=== PATIENT | male | born 1955 ===

== ENCOUNTER → 2016-07-04 | Outpatient (REF) | payer BC, MEDICARE | LOC: LAB 11:27 | PROVIDERS: ATTEND Family Medicine | DX: E11.9 Type 2 diabetes mellitus without complications (principal) | CPT/HCPCS: 83036 ==

== ENCOUNTER → 2016-09-01 | Outpatient (REF) | payer BC, MEDICARE ==
[2016-09-01 12:48] LABS: BASOPHILS % (AUTO) 0 % (0-2); EOSINOPHILS # (AUTO) 0.1 10^3uL; EOSINOPHILS % (AUTO) 1 % (0-4); LYMPHOCYTES # (AUTO) 2.5 X10^3; MEAN CORPUSCULAR HEMOGLOBIN 30.1 PG (26.0-34.0); MEAN CORPUSCULAR HGB CONC 35.1 g/dL (31.0-37.0); MEAN CORPUSCULAR VOLUME 86 FL (80-100); MEAN PLATELET VOLUME 10.5 FL (6.0-9.5); MONOCYTES # (AUTO) 2.2 X10^3; MONOCYTES % (AUTO) 13 % (3-11); NEUTROPHILS # (AUTO) 11.9 X10^3; NEUTROPHILS % (AUTO) 71 % (51-67); PLATELET COUNT 248 10^3uL (150-450); WHITE BLOOD COUNT 16.73 10^3uL (4.0-11.0)
[2016-09-01 12:53] LABS: ALBUMIN 4.2 g/dL (3.4-5.0); ANION GAP 18.7 MEQ/L (3-15); CALCULATED IONIZED CALCIUM 3.9 mg/dL (3.8-4.6); TOTAL PROTEIN 8.2 g/dL (6.4-8.5)
[2016-09-01 13:57] LABS: BILIRUBIN,URINE Negative (Negative); CLARITY,URINE Clear; COLOR,URINE Yellow; GLUCOSE, URINE (UA) Trace (Negative); LEUKOCYTE ESTERASE ,URINE Negative (Negative); PH,URINE 5.5 (5.0 - 8.0); UROBILINOGEN,URINE 0.2 mg/dL (0.2-1.0)
[2016-09-01 14:07] LABS: RBC,URINE 0-2 /HPF; URINE CENTRIFUGED VOLUME 10 mL
== END ==
LOC: LAB 12:27
PROVIDERS: ATTEND Physician Assistant Surgical
DX: E11.9 Type 2 diabetes mellitus without complications (principal); R53.1 Weakness; R47.89 Other speech disturbances; I63.8 Other cerebral infarction
CPT/HCPCS: 36415; 80053; 81003; 81015; 85025; 85610; 85730

== ENCOUNTER → 2016-09-01 | Outpatient (CLI) | payer BC, MEDICARE ==
--- NOTE | 2016-09-01 13:20 | Diagnostic Imaging Report ---
PROCEDURE: CT head without contrast. TECHNIQUE: Multiple contiguous axial images were obtained through the brain without the use of intravenous contrast. INDICATION: Speech disturbance. FINDINGS: There are some areas of decreased density in the periventricular white matter of both hemispheres. There are no masses or hemorrhages. There are no extra-axial fluid collections. IMPRESSION: Chronic ischemic leukoencephalopathy. There is no CT evidence for acute infarct. Dictated by: Dictated on workstation # [id number]
--- NOTE | 2016-09-01 13:21 | Diagnostic Imaging Report ---
INDICATION: Right wrist pain. FINDINGS: Two views of the right wrist show no fracture or dislocation. Joint spaces are normal. IMPRESSION: Negative right wrist. Dictated by: Dictated on workstation # [id number]
== END ==
LOC: RAD 12:46
PROVIDERS: ATTEND Nurse Practitioner Family
DX: R53.1 Weakness (principal); R47.89 Other speech disturbances; M25.531 Pain in right wrist; G93.49 Other encephalopathy
CPT/HCPCS: 70450; 73100

== ENCOUNTER → 2016-09-05 | Outpatient (REF) | payer BC, MEDICARE ==
[2016-09-05 10:07] LABS: BASOPHILS % (AUTO) 1 % (0-2); EOSINOPHILS # (AUTO) 0.6 10^3uL; EOSINOPHILS % (AUTO) 4 % (0-4); LYMPHOCYTES # (AUTO) 2.7 X10^3; MEAN CORPUSCULAR HEMOGLOBIN 29.4 PG (26.0-34.0); MEAN CORPUSCULAR HGB CONC 34.3 g/dL (31.0-37.0); MEAN CORPUSCULAR VOLUME 86 FL (80-100); MEAN PLATELET VOLUME 10.6 FL (6.0-9.5); MONOCYTES # (AUTO) 1.7 X10^3; MONOCYTES % (AUTO) 12 % (3-11); NEUTROPHILS # (AUTO) 8.9 X10^3; NEUTROPHILS % (AUTO) 64 % (51-67); PLATELET COUNT 290 10^3uL (150-450); WHITE BLOOD COUNT 13.95 10^3uL (4.0-11.0)
== END ==
LOC: LAB 09:53
PROVIDERS: ATTEND Family Medicine
DX: M10.431 Other secondary gout, right wrist (principal)
CPT/HCPCS: 84550; 85025